=== PATIENT | female | born 1970 | race Caucasian/White ===

== ENCOUNTER 2020-01-19 07:51 | Day surgery (SDC) | payer OTHER ==
[2020-01-19] MEDS ORDERED: LIDOCAINE 1%-EPI 1:100,000 30 ML MDV IJ ONE (10:09)
[2020-01-19] MEDS ORDERED: PROPOFOL 20 ML ONE ×3 (10:12→10:13)
[2020-01-19] MEDS ORDERED: MIDAZOLAM HCL 2 MG/2 ML SINGLE DOSE VIAL ONE (10:16)
[2020-01-19] MEDS ORDERED: LIDOCAINE 1%/EPI 1:100000 (20 ML MULTI DOSE VIAL) INF ONE ×2 (10:35)
--- NOTE | 2020-01-19 10:59 | OP ---
Operative Note - Note: Operative Date: 01/19/20 Pre-Operative Diagnosis: Rt. groin mass. Operation: Excision of rt. groin mass. Post-Operative Diagnosis: Same as Pre-op Surgeon: River Damon Anesthesia: Local Estimated Blood Loss (mls): 1 Operative Report Dictated: Yes
[2020-01-19] MEDS ORDERED: PATIENT'S OWN MEDICATION (NON-FORMULARY) (Naproxen Sodium [Aleve] 220 MG) PO SCH (11:15)
[2020-01-19] MEDS ORDERED: LACTATED RINGERS SOLUTION 1,000 ML IV SCH (12:00)
[2020-01-19 12:42] VITALS: BP 137/77; PULSE 72; TEMP 98
[2020-01-20] MEDS ORDERED: PATIENT'S OWN MEDICATION (NON-FORMULARY) (Iron [Iron] 18 MG) PO SCH (10:00)
[2020-01-20] MEDS ORDERED: DOCUSATE SODIUM 100 MG CAPSULE (FP) PO SCH (10:00)
[2020-01-20] MEDS ORDERED: ASCORBIC ACID 500 MG TABLET (FP) PO SCH (10:00)
--- NOTE | 2020-01-20 12:06 | OP ---
DATE OF OPERATION: 01/19/2020 PREOPERATIVE DIAGNOSIS: Right-sided groin mass, recurring. POSTOPERATIVE DIAGNOSIS: Right-sided groin mass, recurring. PROCEDURE: Deep excision of the right groin mass. ANESTHESIA: Local and mild sedation. . PROCEDURE AND FINDINGS: Patient was placed in the dorsal lithotomy position and the mass in the right groin on the inner side of the thigh was exposed. The area was scrubbed and draped in normal fashion. Lidocaine with epinephrine was used for infiltration. Mass was examined, and an incision in a margin of normal skin was carried down in a spindle-like fashion, encompassing the base of the mass plus about 5 mm of skin around it. It was placed under traction, and using Bovie, deep wedge-shaped dissection was carried out to the "root" of the lesion. That was done without complications, and specimen was sent for pathology. The defect following excision was examined, and hemostasis was assured using Bovie. Two layers of Biosyn 3-0 were used to close it. The first layer approximated both side in the adipose tissue, and the second layer was used in interrupted as well as continuous fashion subcuticular to approximate the edges of the skin evenly. The incision was then reinforced with Steri-Strips, and dressing of Tegaderm was applied. Procedure was completed without any problems. Blood loss was no more than 1 mL. Patient was transferred to PACU comfortable, stable, and awake. CLAY STEIN MD [id number]
--- NOTE | 2020-01-20 14:35 | PATH ---
Surgical Pathology Report Patient Name: JAMILA HURTADO [facility]. Rec. #: [id number] /Age/Gender: 1970 (Age: 49) / F Account: [id number] Location: Taken: 01/19/2020 Received: 01/19/2020 Reported: 01/20/2020 Physicians: River Damon MD Specimen(s) Received RIGHT GROIN MASS Clinical History Vulvar cyst; excision of right recurrent vulvar/thigh lesion Final Diagnosis RIGHT GROIN MASS, EXCISION: POLYPOID PORTION OF SKIN WITH SUBEPITHELIAL FIBROVASCULAR AND MATURE ADIPOSE TISSUE, CONSISTENT WITH FIBROEPITHELIAL POLYP. Electronically Signed Traci Martinez M.D. Gross Description Received in formalin labeled "right groin mass," is a 1.1 x 0.5 cm grubbs, elliptical, unoriented portion of skin excised to depth of 1.6 cm. The epidermal surface displays a 1.0 x 0.4 x 0.3 cm grubbs, polypoid lesion. The underlying soft tissue is inked blue and the specimen is serially sectioned. The specimen is entirely embedded in one cassette. /01/19/2020 [facility]01/19/2020
== END 2020-01-19 12:50 | disposition home or self-care (01) ==
LOC: JASU-SURG 07:51
PROVIDERS: ATTEND Specialist
PROC: 0UBM0ZZ Excision of Vulva, Open Approach (ICD-10-PCS; 2020-01-19)
PROC: 0HQAXZZ Repair Inguinal Skin, External Approach (ICD-10-PCS; principal; 2020-01-19 10:00)
DX: N90.7 Vulvar cyst (principal)
CPT/HCPCS: 81025; 88304-TC; 94760